=== PATIENT | male | born 1995 | race Two or more races ===

== ENCOUNTER 2018-07-15 14:18 | Emergency (ER) | payer SELFPAY ==
[~2018-07-15] VITALS: Ht 165.1 cm; Wt 52.6 kg
[2018-07-15 14:26] VITALS: BP 147/82
[2018-07-15] MEDS ORDERED: DIPHENHYDRAMINE 25 MG CAPSULE ONE (14:48)
[2018-07-15] MEDS ORDERED: FAMOTIDINE 20 MG TABLET ONE (14:48)
[2018-07-15] MEDS ORDERED: DIPHENHYDRAMINE 25 MG CAPSULE PO ONE (15:00)
[2018-07-15] MEDS ORDERED: FAMOTIDINE 20 MG TABLET PO ONE (15:00)
== END 2018-07-15 15:44 | disposition home or self-care (01) ==
LOC: ED 15:18
DX: T49.2X1A Poisoning by local astringents and local detergents, accidental (unintentional), initial encounter (principal); L23.5 Allergic contact dermatitis due to other chemical products; Y92.89 Other specified places as the place of occurrence of the external cause
CPT/HCPCS: 99284; J7512; Q0163